=== PATIENT | female | born 1980 | race Caucasian/White ===

== ENCOUNTER 2019-01-20 08:18 | Inpatient (IN) | payer MEDICAID ==
[~2019-01-20] VITALS: Ht 149.9 cm; Wt 56.0 kg
[2019-01-20 09:05] VITALS: BP 105/64
[2019-01-20 10:00] LABS: BASOPHIL % 0.3 % (0-2); PLATELET COUNT 324 x10^3mcL (130-400); RED CELL DISTRIBUTION WIDTH 13.5 % (11.5-14.5)
[2019-01-20 10:23] LABS: CALCIUM 9.2 mg/dL (8.5-10.1); CARBON DIOXIDE 27.9 mmol/L (21-32); CHLORIDE SERUM 103 mmol/L (98-107); CREATININE SERUM 0.6 mg/dL (0.6-1.0); GFR1 > 60 mL/min; GLUCOSE SERUM 80 mg/dL (74-106); POTASSIUM SERUM 4.1 mmol/L (3.5-5.1); SODIUM SERUM 138 mmol/L (136-145)
[2019-01-20 10:24] LABS: ALBUMIN 3.8 g/dL (3.4-5.0); ALKALINE PHOSPHATASE 160 U/L (46-116); ALT/SGPT 47 U/L (14-59); AST/SGOT 24 U/L (15-37); BILIRUBIN TOTAL 0.48 mg/dL (0.20-1.00); TOTAL PROTEIN, SERUM 7.2 g/dL (6.4-8.2)
[2019-01-20 17:10] VITALS: BP 123/77
--- NOTE | 2019-01-20 17:18 | NUR ---
PATIENT RESTING IN BED COMFORTABLE, NO COMPLAIN. ICE CHIPS GIVEN FOR REQUEST. IVF LR AT 125 ML/HR STARTED TO LAC, PATENT. NEEDS MET. CALL LIGHT WITHIN REACH.
--- NOTE | 2019-01-20 17:25 | NUR ---
RECEIVED FROM PACU VIA [facility]ER[place]. AWAKE AND ALERT, ORIENTED TO NAME, PLACE, TIME AND SITUATION. SPEECH CLEAR AND APPROPRIATE. BREATHING EVEN AND UNLABORED ON ROOM AIR, LUNG SOUNDS CLEAR. ABLE TO MAKE NEEDS KNOWN. DENIES HAVING PAIN OR NAUSEA. ADMISSION ASSESSMENT DONE. INSTRUCTED ON USE OF CALL LIGHT TO CALL FOR ASSISTANCE, PLACED WITHIN EASY REACH. ENDORSED TO NURSE BAEZA.
--- NOTE | 2019-01-20 18:28 | NUR ---
PATIENT RESTING IN BED NO C/O PAIN AT THIS TIME, DINNER TRAY ON TABLE PATIENT WILL EAT LATER. CALL LIGHT WITHIN REACH.
--- NOTE | 2019-01-20 19:00 | NUR ---
RECEIVED PT IN BED COMFORTABLY RESTING.LUNG SOUND CTA. NO ACUTE RESPIRATORY DISTRESS NOTED.TRANVERSE SURGICAL INCISION TO ABDOMEN WITH DRESSING.CDI.IV SITE PATENT AND INTACT. DENIES ANY PAIN AT THIS TIME. BED IN LOWEST POSITION,CALL LIGHT WITHIN REACH. WILL CONTINUE TO MONITOR.
[2019-01-20 21:02] VITALS: BP 124/77
--- NOTE | 2019-01-20 21:30 | NUR ---
RECEIVED REPORT FROM ALEJO KINCAID. PT SLEEPING AT THIS TIME. PT BREATHING EVEN AND UNLABORED. NO ACUTE DISTRESS NOTED. CALL LIGHT WITHIN REACH. BED IN LOWEST POSITION. SIDE RAILS X2 UP. WILL CONTINUE TO MONITOR.
--- NOTE | 2019-01-20 23:00 | NUR ---
PT C/O ABD PAIN 09/17. PER APR, ADMINISTERED TORADOL IVP. WILL REASSESS PAIN. WILL CONTINUE TO MONITIOR.
--- NOTE | 2019-01-21 00:15 | NUR ---
PT SLEEPING. PT BREATHING EVEN AND UNLABORED. NO ACUTE DISTRESS NOTED. CALL LIGHT WITHIN REACH. BED IN LOWEST POSITION. SIDE RAILS X2 UP. WILL CONTINUE TO MONITOR.
--- NOTE | 2019-01-21 02:50 | NUR ---
PT SLEEPING, BUT EASILY AROUSABLE. PT DENIES ANY PAIN AT THIS TIME. PT BREATHING EVEN AND UNLABORED. IVF INFUSING WELL. IV INTACT. CALL LIGHT WITHIN REACH. BED IN LOWEST POSITION. SIDE RAILS X2 UP. WILL CONTINUE TO MONITOR.
--- NOTE | 2019-01-21 03:45 | NUR ---
PT SLEEPING. PT BREATHING EVEN AND UNLABORED. NO ACUTE DISTRESS NOTED. IVF INFUSING WELL. CALL LIGHT WITHIN REACH. BED IN LOWEST POSITION. SIDE RAILS X2 UP. WILL CONTINUE TO MONITOR.
--- NOTE | 2019-01-21 05:13 | NUR ---
PT SLEPT THROUGHOUT THE NIGHT. NO ACUTE DISTRESS NOTED. PT COMPLIED WITH NURSING CARE THROUGHOUT THE SHIFT. COMFORT AND SAFETY MEASURES MAINTAINED. ALL QUESTIONS AND CONCERNS ADDRESSED. WILL ENDORSE CARE TO DAY SHIFT NURSE. WILL CONTINUE TO MONITOR.
[2019-01-21 05:35] VITALS: BP 105/60
--- NOTE | 2019-01-21 07:10 | NUR ---
RECEIVE REPORT FROM FEED MANAGEMENT ADVISOR NURSE, AOX4, NOT IN DISTRESS, MEDSURG, PALPABLE PULSES NO EDEMA, CTA ON BLF, REGULAR RATE AND RHYTHM, + BS, LAST BM 01/19/19, VOIDS WITH NO DYSURIA, NO WEAKNESS, AMBULATORY, TRANSVERSE SURGICAL INCISCION AT SUPRAPUBIC AREA,CDI, S/P TRANSABDOMINAL MYOMECTOMY, NO BLEEDING, PS OF 7/10, TORADOL GIVEN AT 2255, IV INTACT AND PATENT LAC AT 125CC/HR. NO REDNESS OR INFILTRATION. CALL LIGHT WITHINR REACH . BED AT LOWEST POSITION.
[2019-01-21 08:12] VITALS: BP 96/43
--- NOTE | 2019-01-21 09:25 | NUR ---
SEEN SITTING, AOX4, NOT IN DISTRESS WITH COMPLAINTS OF SURGICAL SITE PAIN 08/17. PAIN MEDICATIONS GIVEN. CALL LIGHT WITHIN REACH. BED AT LOWEST POSITION.
[2019-01-21 12:35] VITALS: BP 106/55
[2019-01-21] MEDS ORDERED: IBUPROFEN400 MG PO (12:45)
--- NOTE | 2019-01-21 15:13 | NUR ---
CAME IN AND DID ROUNDS WITH NEW ORDER OKAY TO DISCHARGE PT HOME TODAY AND FOLLOW UP WITH HIM THIS COMING WEDNESDAY. JENNIFER KINCAID ASSIGNED TO THIS PT MADE AWARE OF ABOVE.
--- NOTE | 2019-01-21 15:26 | NUR ---
SEEN PATIENT AOX4, NOT IN DISTRESS, PAIN AT SURGICAL SITE 07/18. IBUPROFEN 800MG/TAB 1 TAB GIVEN. PHOTOGRAPH SURGICAL SITE WITH LABEL.SURGICAL SITE COVERED WITH STRATASORB ADHESIVE DRESSING. CLEAN DRY INTACT SURGICAL SITE 16X1CM, NO REDNESS OR INFLAMMATION, WITH SUTURES ON SURGICAL SITE. PATIENT MADE AWARE OF DISCHARGE AND TO FOLLOW UP DR KEYS ON WEDNESDAY. MADE AWARE TO CALL ON WEDNESDAY.
[2019-01-21 15:37] VITALS: BP 106/55
--- NOTE | 2019-01-21 16:30 | NUR ---
PATIENT DISCHARGED , BELONGINGS WITH FAMILY. SISTER ACCOMPANIED PATIENT.
== END 2019-01-21 16:40 | disposition home or self-care (01) | DRG 519 ==
LOC: DS 08:18 → OR 11:30 → MU 16:28 → DS 17:04 → MU 01-21 16:40
PROVIDERS: ADMIT Obstetrics & Gynecology
PROC: 0UB90ZZ Excision of Uterus, Open Approach (ICD-10-PCS; principal; 2019-01-20 11:30)
DX: D25.9 Leiomyoma of uterus, unspecified (principal)
CPT/HCPCS: G0378; J0330; J0690; J1170; J1885; J2250; J2405; J2704; J2710; J3010; J3490; J7030; J7120